=== PATIENT | male | born 1995 ===

== ENCOUNTER → 2024-07-25 | Outpatient (CLI) | payer OTHER ==
--- NOTE | 2024-07-25 15:45 | HMCIMG ---
US SCROTUM & CONTENTS HISTORY: Scrotal pain COMPARISON: None TECHNIQUE: Duplex scrotal ultrasound study was performed. FINDINGS: The right testes measures 3.7 x 2.1 x 2.8 cm. The left testes measures 2.9 x 1.6 x 2.8 cm. No evidence of intratesticular mass or abnormal calcification is seen. Normal flow is demonstrated in the testes and epididymides bilaterally. No hydroceles or varicocele is seen. There are bilateral epididymal cysts with largest on the right measuring 15 mm and on the left measuring 6 mm. Right scrotal wall measures 4 mm in thickness. IMPRESSION: 1. No evidence of intratesticular mass is seen. 2. Normal flow is demonstrated of both testes. Bilateral epididymal cysts.
== END | disposition home or self-care (01) ==
LOC: EEVIPCON 11:43 → RAH 11:43
PROVIDERS: ATTEND Family Medicine
DX: N50.3 Cyst of epididymis (principal); N50.82 Scrotal pain
CPT/HCPCS: 76870